=== PATIENT | female | born 1995 | race Two or more races ===

== ENCOUNTER 2017-06-03 20:22 | Emergency (ER) | payer SELFPAY ==
[2017-06-03] MEDS ORDERED: ACETAMINOPHEN 325 MG TABLET PO ONE (23:10)
[2017-06-03] MEDS ORDERED: CEPHALEXIN 500 MG CAPSULE PO ONE (23:10)
--- NOTE | 2017-06-03 23:10 | ER Document Report ---
HPI - HPI Pain Level: 3 Context: Patient is a 22-year-old female presents emergency department complaining of a tender inflamed area in the posterior aspect of the left that has been there since Saturday. Patient states she is concerned that it is a staph infection since her boyfriend has been treated for the past week. She states that it hurts to touch and to sit in to walk. Otherwise denies any history of previous MRSA, abscess. Otherwise healthy female. Denies any drug allergies - REPRODUCTIVE Reproductive: DENIES: : - DERM Skin Color: Normal, Mazon Past Medical History - Social History Smoking Status: Never Smoker Family History: Reviewed & Not Pertinent Renal/ Medical History: Denies: Hx Peritoneal Dialysis GI Medical History: Reports: Hx Gastroesophageal Reflux Disease Psychiatric Medical History: Reports: Hx Depression - stopped taking medication in high school Past Surgical History: Reports: Hx Section - 3 - Immunizations Hx Diphtheria, Pertussis, Tetanus Vaccination: Yes - already received Vertical Provider Document - INFECTION CONTROL TRAVEL OUTSIDE OF THE [place] IN LAST 30 DAYS: No - RESPIRATORY O2 Sat by Pulse Oximetry: 100 - CARDIOVASCULAR Pulses: Normal: Femoral, Dorsalis pedis - MUSCULOSKELETAL/EXTREMETIES Musculoskeletal/Extremeties: MAEW, FROM, Non-Tender, No Edema - NEURO Level of Consciousness: Awake, Alert, Appropriate Motor/Sensory: No Motor Deficit, No Sensory Deficit - DERM Integumentary: Abscess - left posterior thigh below gluteal fld measuring 3cm in diameter, tender to palpation Course - Re-evaluation Re-evalutation: 06/04/17 01:04 Patient is a 22 year old female who is Hemodynamically stable, no acute distress afebrile. I&D performed at the bedside with no removal of purulent material. Dry sterile dressing applied. Patient initiated on antibiotics and educated on using warm compresses. Otherwise patient to follow-up with primary care and given strict return precautions indicating return to emergency department. Patient agrees with plan - Vital Signs Vital signs: Temp Pulse Resp BP Pulse Ox 98.7 F 69 18 127/77 H 100 06/03/17 21:46 06/03/17 21:46 06/03/17 21:46 06/03/17 21:46 06/03/17 21:46 Discharge - Discharge Clinical Impression: Cellulitis Condition: Good Disposition: HOME, SELF-CARE Instructions: Abscess ([facility]), Post Incision and Drainage, Trimethoprim-Sulfa ( [facility]) Prescriptions: Sulfamethoxazole/Trimethoprim [Bactrim Ds Tablet] 1 each PO BID #10 tablet
[2017-06-03] MEDS ORDERED: SULFAMETHOXAZOLE/TRIMETHOPRIM 800-160 MG TABLET PO ONE (23:35)
[2017-06-03] MEDS ORDERED: ONDANSETRON ODT 4 MG TAB (6 TAB/DSPK) PO PRN (23:36)
[2017-06-03] MEDS ORDERED: HYDROCODONE/ACETAMINOPHEN 5-325 MG 6 TAB/DSPK PO PRN (23:36)
[2017-06-03 23:48] VITALS: BP 122/67
== END 2017-06-03 23:47 | disposition home or self-care (01) ==
LOC: ER 20:22
DX: L03.116 Cellulitis of left lower limb (principal)
CPT/HCPCS: 99282

== ENCOUNTER 2018-02-24 15:23 | Emergency (ER) | payer SELFPAY ==
[2018-02-24 15:30] VITALS: BP 119/59
[2018-02-24] MEDS ORDERED: MUPIROCIN 2% OINTMENT 22 GM TP ONE (16:34)
[2018-02-24] MEDS ORDERED: SULFAMETHOXAZOLE/TRIMETHOPRIM 800-160 MG TABLET PO ONE (16:34)
--- NOTE | 2018-02-24 16:40 | ER Document Report ---
ED Skin Rash/Insect Bite/Abscs - General Chief Complaint: Skin Problem Stated Complaint: POSSIBLE INFECTION TO LEFT LEG Time Seen by Provider: 02/24/18 16:26 Mode of Arrival: Ambulatory Information source: Patient Notes: 23-year-old female presents to ED for a raised sore spot to the left leg for 2 days. She states she has had MRSA in the past on the same leg. She stated it is not extremely painful but it is tender to the touch. There is no redness surrounding the red spot. Patient is alert and oriented respirations regular and unlabored speaking in full sentences. TRAVEL OUTSIDE OF THE [place] IN LAST 30 DAYS: No - HPI Patient complains to provider of: Tender/swollen area Onset: Other - 2days Onset/Duration: Gradual Quality of pain: Sharp Severity: Moderate Pain Level: 2 Skin Character: Abscess - very small Quality of rash: Painful Exacerbated by: Other - Palpation Relieved by: Denies Similar symptoms previously: Yes Recently seen / treated by doctor: No - Related Data Allergies/Adverse Reactions: No Known Drug Allergies Allergy (Verified 09/01/14 11:54) pumpkin Allergy (Mild, Uncoded 02/17/13 18:23) swelling, hives Past Medical History - General Information source: Patient - Social History Smoking Status: Current Every Day Smoker Cigarette use (# per day): Yes - One half pack per day Chew tobacco use (# tins/day): No Smoking Education Provided: Yes - 4 minutes Frequency of alcohol use: Occasional Drug Abuse: None Occupation: [employer] Lives with: Alone Family History: Reviewed & Not Pertinent Patient has suicidal ideation: No - Past Medical History Cardiac Medical History: Reports: None Pulmonary Medical History: Reports: None EENT Medical History: Reports: None Neurological Medical History: Reports: None Endocrine Medical History: Reports: None Renal/ Medical History: Reports: None Malignancy Medical History: Reports: None GI Medical History: Reports: Hx Gastroesophageal Reflux Disease Musculoskeletal Medical History: Reports None Skin Medical History: Reports Hx Cellulitis, Reports Hx MRSA Psychiatric Medical History: Reports: Hx Depression - stopped taking medication in high school Traumatic Medical History: Reports: None Infectious Medical History: Reports: Hx MRSA Past Surgical History: Reports: Hx Section - 3, Hx Myringotomy - Immunizations Hx Diphtheria, Pertussis, Tetanus Vaccination: Yes - already received Review of Systems - Review of Systems Constitutional: No symptoms reported EENT: No symptoms reported Cardiovascular: No symptoms reported Respiratory: No symptoms reported Gastrointestinal: No symptoms reported Genitourinary: No symptoms reported Female Genitourinary: No symptoms reported Musculoskeletal: No symptoms reported Skin: Other - Very small abscess to the left leg does not need I&D Hematologic/Lymphatic: No symptoms reported Neurological/Psychological: No symptoms reported -: Yes All other systems reviewed and negative Physical Exam - Vital signs Vitals: Temp Pulse Resp BP Pulse Ox 98.7 F 59 L 15 119/59 L 100 02/24/18 15:28 02/24/18 15:28 02/24/18 15:28 02/24/18 15:28 02/24/18 15:28 Interpretation: Normal - General General appearance: Appears well, Alert - HEENT Head: Normocephalic, Atraumatic Eyes: Normal Pupils: PERRL - Respiratory Respiratory status: No respiratory distress Chest status: Nontender Breath sounds: Normal Chest palpation: Normal - Cardiovascular Rhythm: Regular Heart sounds: Normal auscultation Murmur: No - Abdominal Inspection: Normal Distension: No distension Bowel sounds: Normal Tenderness: Nontender Organomegaly: No organomegaly - Back Back: Normal, Nontender - Extremities General upper extremity: Normal inspection, Nontender, Normal color, Normal ROM , Normal temperature General lower extremity: Normal inspection, Nontender, Normal color, Normal ROM , Normal temperature, Normal weight bearing. No: Shea's sign - Neurological Neuro grossly intact: Yes Cognition: Normal Orientation: AAOx4 Kenji Coma Scale Eye Opening: Spontaneous Kenji Coma Scale Verbal: Oriented Kenji Coma Scale Motor: Obeys Commands Kenji Coma Scale Total: 15 Speech: Normal Motor strength normal: LUE, RUE, LLE, RLE Sensory: Normal - Psychological Associated symptoms: Normal affect, Normal mood - Skin Skin Temperature: Warm Skin Moisture: Dry Skin Color: Normal Skin irregularity: Abscess - Very small abscess does not need I&D left posterior leg Irregularity with: Swelling, Tenderness Course - Re-evaluation Re-evalutation: 02/24/18 16:41 Patient was instructed to clean area well 3 times a day with soap and water and apply Bactroban. Patient was also given prescription for Bactrim. Patient to follow-up with her primary doctor in the next 24-48 hours. - Vital Signs Vital signs: Temp Pulse Resp BP Pulse Ox 98.7 F 59 L 15 119/59 L 100 02/24/18 15:28 02/24/18 15:28 02/24/18 15:28 02/24/18 15:28 02/24/18 15:28 Discharge - Discharge Clinical Impression: Abscess not needing I&D Condition: Stable Disposition: HOME, SELF-CARE Instructions: Family Physicians / Practices Additional Instructions: ABSCESS: You have an abscess (boil). This a pus-forming infection, usually due to staph. Some boils may be left to drain on their own, but most require lancing. From the time the tender lump first appears, it may be three or four days before the abscess is ready to shawna. Local heat and rest help at this stage of treatment. An antibiotic may prevent spread of the infection. Once the abscess is opened, packing may be placed into it. This is done so pus is not sealed inside by premature closure of the cavity. The packing will be removed at your follow-up visit or you may be advised to remove it yourself at home. Sometimes this packing must be replaced a few times during healing. The wound will heal with surprisingly little scar. Depending on the size and location of an abscess, healing can take one to four weeks. You may shower and wash the area around the incision site two or three times a day. Antibiotics may be prescribed, but are usually not necessary after an abscess has been drained. If you develop fever, chills, worsening pain, or increasing swelling in the area, call the doctor or return immediately. TRIMETHOPRIM-SULFA: You have been given a prescription for trimethoprim-sulfa (TMS, Septra, Bactrim). This is a combination antibiotic of the sulfa class, often used for urinary tract infections, middle ear infections, bronchitis, shigella intestinal infection, and Pneumocystis pneumonia. TMS is usually well-tolerated. Occasional side effects include nausea and decreased appetite. Septra is not recommended for infants less than two months of age. Do not take this medication if you have experienced severe side effects or allergy to sulfa medicine. You should stop this medicine at once and contact your physician if you develop any rash, joint pain, shortness of breath, bruising, or jaundice ( yellow color in the skin), or if you develop any other new or unusual symptoms. Soap Cleansing Gently wash the wound daily using a mild soap (like Ivory, Phisoderm, Neutrogena). Use warm water, rubbing gently until all debris, ooze, and crusting have been washed from the wound. Allow to dry briefly (about 10 minutes) after cleaning. Repeat this cleansing at least three times a day for the first two days and then once or twice a day. Bactroban Ointment Bactroban is very effective against the germs that cause infection within the skin. It's useful for impetigo and other superficial infections. Deeper infections require antibiotics by mouth or by shot. Apply the medicine three times a day for one week, or longer if your doctor has advised it. Stop the medicine and call your doctor if you develop large blisters, severe itching, increasing pain, swelling, fever, or spreading redness. FOLLOW-UP CARE: Most simple abscesses will not require a follow up visit. If you had packing placed in the abscess, remove it as instructed by the physician. If you have been referred to a physician for follow-up care, call the physicians office for an appointment as you were instructed or within the next two days. If you experience worsening or a significant change in your symptoms, return to the Emergency Department at any time for re-evaluation. Prescriptions: Mupirocin [Bactroban 2% Ointment 22 gm] 22 applic TP TID #1 tube Sulfamethoxazole/Trimethoprim [Bactrim Ds Tablet] 1 each PO BID #20 tablet Forms: Smoking Cessation Education, Return to Work Referrals: JOSE DE JESUS GARCIA PA [Primary Care Provider] - Follow up as needed
== END 2018-02-24 17:09 | disposition home or self-care (01) ==
LOC: ER 15:23
DX: L02.416 Cutaneous abscess of left lower limb (principal); F17.210 Nicotine dependence, cigarettes, uncomplicated; Z71.6 Tobacco abuse counseling; Z86.14 Personal history of Methicillin resistant Staphylococcus aureus infection; Z91.018 Allergy to other foods
CPT/HCPCS: 99406; 99283; J3490

== ENCOUNTER 2018-10-23 09:01 | Emergency (ER) | payer SELFPAY ==
[2018-10-23 09:11] VITALS: BP 136/85
--- NOTE | 2018-10-23 10:26 | ER Document Report ---
ED Psych Disorder / Suicide <TRACI ANTONIO - Last Filed: 10/23/18 14:28> - General Mode of Arrival: Ambulatory Information source: Patient TRAVEL OUTSIDE OF THE [place] IN LAST 30 DAYS: No <BARTOLO FLOWER - Last Filed: 10/23/18 15:27> - General Chief Complaint: Psych Problem Stated Complaint: PSYCH EVAL Time Seen by Provider: 10/23/18 10:26 Primary Care Provider: [facility], [facility] [Outside] - Follow up in 3-5 days JOSE DE JESUS GARCIA PA [NO LOCAL MD] - Follow up as needed ARIAN LEVIN MD [COMMUNITY BASED STAFF] - Follow up as needed - [facility] Notes: 23-year-old female 2 para 2 presents to the ED for mental health evaluation attempting to cut her wrist this morning due to extensive depression and anxiety where she "could not take it anymore" but did not actually cut herself due to her boyfriend intervening and stopping her. Patient denies any homicidal ideation. Patient has cut herself in the past, states when she was 14 years old she was admitted [facility] the [facility] for depression, was placed on antidepressants however did not continue them after couple years due to not being able to afford them as well as "being told by family take give my depr ession to God". Patient tried to see [facility] within the last month but they would not give her any support per patient. Patient is actively seeking out mental health support for her depression and anxiety as well as managing her is to cut herself. patient states she recently had her menstrual cycle 2 days ago. Denies any illicit drug use or ingesting harmful substances or large quantities of medications. Does not have a primary care provider that she sees. Patient is tearful and weepy. Denies fevers, chills, chest pain,palpitations, shortness of breath, dyspnea, nausea, vomiting, diarrhea, abdominal pain, hematuria,blurred vision, double vision, loss of vision, speech changes, LH, dizziness, syncope, headaches, wheezing, ST, URI, neck pain, weakness, bowel or bladder dysfunction, saddle anesthesia, numbness or tingling in bilateral upper or lower extremities equally, muscle paralysis, weakness in bilateral upper or lower extremities equally or rash. Denies IV drug use. (MUNDO,BARTOLO A) - Related Data Allergies/Adverse Reactions: No Known Drug Allergies Allergy (Verified 10/23/18 09:06) pumpkin Allergy (Mild, Uncoded 10/23/18 09:06) swelling, hives Past Medical History - General Information source: Patient - Social History Smoking Status: Unknown if Ever Smoked Family History: Reviewed & Not Pertinent Renal/ Medical History: Denies: Hx Peritoneal Dialysis GI Medical History: Reports: Hx Gastroesophageal Reflux Disease Skin Medical History: Reports Hx Cellulitis, Reports Hx MRSA Psychiatric Medical History: Reports: Hx Depression - stopped taking medication in high school Infectious Medical History: Reports: Hx MRSA Past Surgical History: Reports: Hx Section - 3, Hx Myringotomy - Immunizations Hx Diphtheria, Pertussis, Tetanus Vaccination: Yes - already received <BARTOLO FLOWER - Last Filed: 10/23/18 15:27> Review of Systems - Review of Systems Constitutional: No symptoms reported EENT: No symptoms reported Cardiovascular: No symptoms reported Respiratory: No symptoms reported Gastrointestinal: No symptoms reported Genitourinary: No symptoms reported Female Genitourinary: No symptoms reported Musculoskeletal: No symptoms reported Skin: No symptoms reported Hematologic/Lymphatic: No symptoms reported Neurological/Psychological: See HPI, Suicidal ideation <BARTOLO FLOWER - Last Filed: 10/23/18 15:27> Physical Exam <BARTOLO FLOWER - Last Filed: 10/23/18 15:27> - Vital signs Vitals: Temp Pulse Resp BP Pulse Ox 98.5 F 82 16 136/85 H 99 10/23/18 09:10 10/23/18 09:10 10/23/18 09:10 10/23/18 09:10 10/23/18 09:10 - Notes Notes: PHYSICAL EXAMINATION: GENERAL: Well-appearing, well-nourished and in no acute distress. HEAD: Atraumatic, normocephalic. EYES: Pupils equal round and reactive to light, extraocular movements intact, conjunctiva are normal. ENT: Nares patent, oropharynx clear without exudates. Moist mucous membranes. NECK: Normal range of motion, supple without lymphadenopathy LUNGS: Breath sounds clear to auscultation bilaterally and equal. No wheezes rales or rhonchi. HEART: Regular rate and rhythm without murmurs ABDOMEN: Soft, nontender, nondistended abdomen. No guarding, no rebound. No masses appreciated. Female : deferred Musculoskeletal: Normal range of motion, no pitting or edema. No cyanosis. NEUROLOGICAL: Cranial nerves grossly intact. Normal speech, normal gait. Normal sensory, motor exams PSYCH: Patient tearful, slightly anxious but cooperative with examination. Patient is alert and oriented 4. Mood is euthymic with normal affect. Patient denies any homicidal ideations, intent, plan needs. reports felt suicidial but no longer feels that way. Patient denies any auditory and visual hallucinations, delusions none noted. Thought processes are guarded and organized. Conversational speech within normal limits for rate, tone, prosody. Intellectual abilities are estimated within average range. Attention and focus are fair. Insight, judgment, impulse control are poor. SKIN: Warm, Dry, normal turgor, no rashes or lesions noted. 22-like and then on the other half of a flight (BARTOLO FLOWER) Course - Laboratory Result Diagrams: 10/23/18 10:45 10/23/18 10:45 <TRACI ANTONIO - Last Filed: 10/23/18 14:28> - Laboratory Result Diagrams: 10/23/18 10:45 10/23/18 10:45 <BARTOLO FLOWER - Last Filed: 10/23/18 15:27> - Re-evaluation Re-evalutation: 23-year-old female presents to the ED for evaluation of suicidal ideation with plan to cut her wrists today, was intervened by her boyfriend prior to actually cutting her wrist. Does have a history of cutting and depression. Mental health evaluation consult was placed. Reevaluation patient remains afebrile vitals stable no no distress. Patient was consulted by mental health, patient is actively seeking treatment for her depression anxiety and cutting behavior, patient is not actively suicidal or homicidal at this time. Mental health did feel that patient would be appropriate to go home, follow-up with mental health has been coordinated as well as medications for her depression and anxiety. Suicidal workup unremarkable for any acute findings, no leukocytosis or anemia, no renal or hepatic dysfunction, no electrolyte disturbances. EKG negative for STEMI or ST segment changes. Urinalysis unremarkable,. Drug screen showed marijuana, everything else was negative. Mental health evaluation completed, advised to start Effexor 37.5mg daily and BuSpar 5mg bid. Advised to not drink, do not drive for evaluation with taking medications that can cause sedation or cognitive impairment. Patient is competent and capable to be discharged home after complete assessment by mental health psych team who felt that patient was referred for discharged with patient not suicidal anymore has a plan for follow-up, will be discharged home with medications if patient has no indication of abusing or misusing medications and has a support system around her. After performing a Medical Sc reening Examination, I estimate there is LOW risk for RUPTURED ESOPHAGUS, PNEUMOTHORAX, PULMONARY EMBOLISM, ACUTE CORONARY SYNDROME, OR THORACIC AORTIC DISSECTION, thus I consider the discharge disposition reasonable. I have reevaluated this patient multiple times and no significant life threatening changes are noted. The patient and I have discussed the diagnosis and risks, and we agree with discharging home with close follow-up. We also discussed returning to the Emergency Department immediately if new or worsening symptoms occur. We have discussed the symptoms which are most concerning (e.g., bloody sputum, worsening pain or shortness of breath) that necessitate immediate return. (BARTOLO FLOWER) - Vital Signs Vital signs: Temp Pulse Resp BP Pulse Ox 98.5 F 82 16 136/85 H 99 10/23/18 09:10 10/23/18 09:10 10/23/18 09:10 10/23/18 09:10 10/23/18 09:10 - Laboratory Laboratory results interpreted by me: 10/23/18 10:45 Salicylates < 1.0 L Acetaminophen < 10 L Discharge <TRACI ANTONIO - Last Filed: 10/23/18 14:28> <BARTOLO FLOWER - Last Filed: 10/23/18 15:27> - Discharge Clinical Impression: Suicidal ideation Condition: Stable Disposition: HOME, SELF-CARE Instructions: Suicidal Ideation ([facility]) Additional Instructions: Suicidal Ideation Suicidal ideation is a common medical term for thoughts about suicide, which may be as detailed as a formulated plan, without the suicidal act itself. Although most people who undergo suicidal ideation do not commit suicide, some go on to make suicide attempts. The range of suicidal ideation varies greatly from fleeting to detailed planning, role playing, and unsuccessful attempts. While thoughts about suicide are common, most people do not carry out serious actions to commit suicide. However, based upon your evaluation and discussion with you, we believe you are currently at risk to act upon your thoughts of suicide. Therefore, you will be admitted to a facility for inpatient care. Mental health has been at bedside to speak with you, medications have been ordered for you; these include effexor 37.5mg daily buspar 5mg twice daily please take as directed Please follow up with an outpatient health provider. Please return if you have thoughts of wanting to hurt yourself, hurt others, or have any other symptoms that are concerning to you. Prescriptions: Buspirone HCl [Buspar 5 mg Tablet] 1 tab PO BID #30 tab Venlafaxine HCl ER [Effexor Xr 37.5 mg Cap.sr] 37.5 mg PO DAILY #30 cap.sr.24h Referrals: JOSE DE JESUS GARCIA PA [NO LOCAL MD] - Follow up as needed ARIAN LEVIN MD [COMMUNITY BASED STAFF] - Follow up as needed [facility], [facility] [Outside] - Follow up in 3-5 days
[2018-10-23 11:11] LABS: APPEARANCE,URINE SLIGHTLY-CLOUDY; BILIRUBIN,URINE NEGATIVE (NEGATIVE); COLOR,URINE YELLOW; GLUCOSE, URINE NEGATIVE (NEGATIVE); KETONES,URINE NEGATIVE (NEGATIVE); LEUKOCYTE ESTERASE,URINE NEGATIVE (NEGATIVE); NITRITE,URINE NEGATIVE (NEGATIVE); PROTEIN,URINE NEGATIVE (NEGATIVE); URINE SPECIFIC GRAVITY 1.009; UROBILINOGEN,URINE NEGATIVE mg/dL (<2.0)
[2018-10-23 11:18] LABS: ABSOLUTE LYMPHOCYTES (AUTO) 2.1 10^3/uL (0.5-4.7); ABSOLUTE MONOCYTES (AUTO) 0.5 10^3/uL (0.1-1.4); ABSOLUTE NEUT (AUTO) 6.4 10^3/uL (1.7-8.2); BASOPHILS % (AUTO) 0.4 % (0-2); EOSINOPHILS % (AUTO) 0.4 % (0-6); HEMATOCRIT 41.3 % (36.0-47.0); HEMOGLOBIN 14.4 g/dL (12.0-15.5); LYMPHOCYTES % (AUTO) 23.3 % (13-45); MEAN CORPUSCULAR HGB CONC 34.8 g/dL (32.0-36.0); MEAN CORPUSCULAR VOLUME 89 fl (80-97); MONOCYTES % (AUTO) 5.4 % (3-13); PLATELET COUNT 317 10^3/uL (150-450); RED BLOOD COUNT 4.64 10^6/uL (3.72-5.28); RED CELL DISTRIBUTION WIDTH 13.1 % (11.5-14.0); SEGMENTED NEUTROPHILS % (AUTO) 70.5 % (42-78); TOTAL CELLS COUNTED % (AUTO) 100 %; WHITE BLOOD COUNT 9.1 10^3/uL (4.0-10.5)
[2018-10-23 11:20] LABS: ALANINE AMINOTRANSFERASE 20 U/L (9-52); ALBUMIN 4.9 g/dL (3.5-5.0); ALKALINE PHOSPHATASE 64 U/L (38-126); ANION GAP 13 (5-19); ASPARTATE AMINO TRANSFERASE 25 U/L (14-36); BILIRUBIN,DIRECT 0.2 mg/dL (0.0-0.4); BILIRUBIN,TOTAL 0.9 mg/dL (0.2-1.3); BLOOD UREA NITROGEN 13 mg/dL (7-20); CALCIUM 10.1 mg/dL (8.4-10.2); CARBON DIOXIDE 23 mmol/L (22-30); CHLORIDE 105 mmol/L (98-107); GLUCOSE 92 mg/dL (75-110); POTASSIUM 4.3 mmol/L (3.6-5.0); SODIUM 140.5 mmol/L (137-145); TOTAL PROTEIN 7.2 g/dL (6.3-8.2)
[2018-10-23 11:25] LABS: ACETAMINOPHEN < 10 ug/mL (10-30); ALCOHOL < 10 mg/dL (NONE DETECTED); SALICYLATE < 1.0 mg/dL (2.0-20.0)
[2018-10-23 11:32] LABS: URINE AMPHETAMINES SCREEN NEGATIVE; URINE BARBITURATES SCREEN NEGATIVE; URINE BENZODIAZEPINES SCREEN NEGATIVE; URINE COCAINE SCREEN NEGATIVE; URINE MARIJUANA (THC) SCREEN UNCONFIRMED POSITIVE; URINE METHADONE SCREEN NEGATIVE; URINE PHENCYCLIDINE SCREEN NEGATIVE
[2018-10-23] MEDS ORDERED: IBUPROFEN 800 MG TABLET PO ONE (12:42)
--- NOTE | 2018-10-23 13:52 | EKG REPORT ---
SEVERITY:- NORMAL ECG - SINUS RHYTHM : Confirmed by: Mykel Hanson MD 23-Oct-2018 13:52:04
== END 2018-10-23 15:10 | disposition home or self-care (01) ==
LOC: ER 09:01
DX: R45.851 Suicidal ideations (principal); F32.9 Major depressive disorder, single episode, unspecified; Z86.14 Personal history of Methicillin resistant Staphylococcus aureus infection
CPT/HCPCS: 36415; 80053; 80307; 81001; 85025; 93005; 93010; 99285

== ENCOUNTER 2019-11-10 12:28 | Emergency (ER) | payer SELFPAY ==
[2019-11-10] MEDS ORDERED: DIPH/PERTUSS(ACELL)/TETANUS VAC/PF 0.5 ML SYR (>=10YO) IM ONE (12:32)
[2019-11-10] MEDS ORDERED: ACETAMINOPHEN 325 MG TABLET PO ONE (12:32)
--- NOTE | 2019-11-10 12:34 | ER Document Report ---
ED Medical Screen (RME) - General Chief Complaint: Head Injury Stated Complaint: LACERATION TO HEAD Time Seen by Provider: 11/10/19 12:30 Mode of Arrival: Wheelchair Information source: Patient Notes: Patient is an otherwise healthy 24-year-old female presenting to the emergency department in the [facility] with concerns for head injury. Patient reports she hit her head off of a concrete wall. She states this occurred this morning around 9 AM. She states she has passed out several times since then. She reports that the area will not stop bleeding, she states she feels very dizzy and has a severe headache. She reports intermittent blurred vision. She is unsure when her last tetanus was. No focal neurological deficits noted. Laceration noted to front of scalp. I have greeted and performed a rapid initial assessment of this patient. A comprehensive ED assessment and evaluation of the patient, analysis of test results and completion of the medical decision making process will be conducted by additional ED providers. I have specifically instructed the patient or family members with the patient to immediately return to any nursing staff should anything change in the patient's condition or with their chief complaint. TRAVEL OUTSIDE OF THE [place] IN LAST 30 DAYS: No - Related Data Allergies/Adverse Reactions: No Known Drug Allergies Allergy (Verified 10/23/18 09:06) pumpkin Allergy (Mild, Uncoded 10/23/18 09:06) swelling, hives Past Medical History Renal/ Medical History: Denies: Hx Peritoneal Dialysis GI Medical History: Reports: Hx Gastroesophageal Reflux Disease Skin Medical History: Reports Hx Cellulitis, Reports Hx MRSA Psychiatric Medical History: Reports: Hx Depression - stopped taking medication in high school Infectious Medical History: Reports: Hx MRSA Past Surgical History: Reports: Hx Section - 3, Hx Myringotomy - Immunizations Hx Diphtheria, Pertussis, Tetanus Vaccination: Yes - already received
[2019-11-10] MEDS ORDERED: ONDANSETRON 4 MG TAB.RAPDIS PO ONE (12:46)
[2019-11-10] MEDS ORDERED: LIDOCAINE 1%/EPINEPHRINE INJ 20 ML VIAL INJ ONE (12:48)
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
--- NOTE | 2019-11-10 12:52 | RADIOLOGY REPORT (SQ) ---
EXAM DESCRIPTION: CT HEAD WITHOUT IMAGES COMPLETED DATE/TIME: 11/10/2019 12:44 pm REASON FOR STUDY: frontal head injury, loss of consciousness COMPARISON: None. TECHNIQUE: Axial images acquired through the brain without intravenous contrast. Images reviewed wi th bone, brain and subdural windows. Additional sagittal and coronal reconstructions were generated. Images stored on PACS. All CT scanners at this facility use dose modulation, iterative reconstruction, and/or weight based d osing when appropriate to reduce radiation dose to as low as reasonably achievable (ALARA). [facility]: Dose Right [facility]: CareDose [facility]: Dose Right [facility]: Teradose 4D [facility]: Phraxis RADIATION DOSE: CT Rad equipment meets quality standard of care and radiation dose reduction techniq ues were employed. CTDIvol: 53.2 mGy. DLP: 991 mGy-cm. mGy. LIMITATIONS: None. FINDINGS: VENTRICLES: Normal size and contour. CEREBRUM: No masses. No hemorrhage. No midline shift. No evidence for acute infarction. Normal gra y/white matter differentiation. No areas of low density in the white matter. CEREBELLUM: No masses. No hemorrhage. No alteration of density. No evidence for acute infarction. EXTRAAXIAL SPACES: No fluid collections. No masses. ORBITS AND GLOBE: No intra- or extraconal masses. Normal contour of globe without masses. CALVARIUM: No fracture. PARANASAL SINUSES: No fluid or mucosal thickening. SOFT TISSUES: No mass or hematoma. OTHER: No other significant finding. IMPRESSION: NORMAL BRAIN CT WITHOUT CONTRAST. EVIDENCE OF ACUTE STROKE: NO. COMMENT: Quality ID # [id number]: Final reports with documentation of one or more dose reduction techniques (e.g., Automated exposure control, adjustment of the mA and/or kV according to patient size, use of iterative reconstruction technique) TECHNICAL DOCUMENTATION: JOB ID: [id number] 2010 [employer]- All Rights Reserved Reading location - IP/workstation name: [email or web address]
[2019-11-10] MEDS ORDERED: BUSPIRONE HCL 10 MG TABLET PO ONE (14:29)
[2019-11-10] MEDS ORDERED: OLANZAPINE 2.5 MG TABLET PO ONE (14:59)
[2019-11-10] MEDS ORDERED: NICOTINE 21 MG/24 HR PATCH.TD24 TD ONE (15:21)
[2019-11-10] MEDS: BENZTROPINE MESYLATE 1 MG TABLET PO SCH (15:26)
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
[2019-11-10] MEDS ORDERED: OLANZAPINE 2.5 MG TABLET PO SCH (18:00)
[2019-11-10] MEDS: BUSPIRONE HCL 10 MG TABLET PO SCH (18:04)
[2019-11-10] MEDS: OLANZAPINE 2.5 MG TABLET PO SCH (18:04)
[2019-11-11] MEDS: OLANZAPINE 2.5 MG TABLET PO SCH (09:51)
[2019-11-11] MEDS: BUSPIRONE HCL 10 MG TABLET PO SCH (09:52)
[2019-11-11] MEDS: BENZTROPINE MESYLATE 1 MG TABLET PO SCH (09:52)
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
[2019-11-11 15:15] VITALS: BP 128/62
== END 2019-11-11 15:20 | disposition home or self-care (01) ==
LOC: ER 12:28
DX: S01.01XA Laceration without foreign body of scalp, initial encounter (principal); W22.8XXA Striking against or struck by other objects, initial encounter; Y93.89 Activity, other specified; Y92.149 Unspecified place in prison as the place of occurrence of the external cause; R45.851 Suicidal ideations; F17.200 Nicotine dependence, unspecified, uncomplicated; Z91.018 Allergy to other foods; Z23 Encounter for immunization
CPT/HCPCS: 99285; 90471; 70450; 90715; S0119; J3490 ×3

== ENCOUNTER 2019-11-23 14:07 | Emergency (ER) | payer MEDICAID ==
[2019-11-23 14:12] VITALS: BP 114/70
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
== END 2019-11-23 14:18 | disposition home or self-care (01) ==
LOC: ER 14:07
DX: S01.01XD Laceration without foreign body of scalp, subsequent encounter (principal); X58.XXXD Exposure to other specified factors, subsequent encounter; F17.200 Nicotine dependence, unspecified, uncomplicated